=== PATIENT | female | born 1940 | race Caucasian/White ===

== ENCOUNTER 2019-01-04 23:18 | Observation (INO) | payer MEDICARE, BC ==
[2019-01-04] MEDS ORDERED: Pantoprazole IV* 40 MG IV ONE (23:45)
[2019-01-04] MEDS ORDERED: NS 0.9% 1000 ML** 1,000 ML IV ONE (23:45)
[2019-01-04] MEDS ORDERED: Ondansetron INJ* 2 MG/ML VIAL IV ONE (23:46)
--- NOTE | 2019-01-04 23:58 | ED ---
GI/ HPI - HPI Summary HPI Summary: This is a 78 year old female with a history of two Floridalma-Choudhary tears presenting with vomiting. The vomiting began several hours ago, with approximately 7 episodes of vomiting, that became dark, appearing like coffee- grounds. She also endorses abdominal pain in the epigastric area, that radiates up towards the sternum. She also complains of slight burning in the upper esophagus. She denies any headache, chest pain, SOB. She is not taking blood thinners. She has not been able to keep fluids or solids down. - History of Current Complaint Chief Complaint: EDNauseaVomitDiarrh Time Seen by Provider: 01/04/19 23:42 Stated Complaint: VOMITING BLOOD PER PT Pain Intensity: 5 - Allergy/Home Medications Allergies/Adverse Reactions: Allergies Allergy/AdvReac Type Severity Reaction Status Date / Time No Known Allergies Allergy Verified 01/04/19 23:25 Home Medications: Home Medications Lisinopril 2.5 MG- 2.5 mg PO DAILY 01/04/19 [History Confirmed 01/05/19] Metformin HCl 500 mg PO BID 01/04/19 [History Confirmed 01/05/19] Lantus Solostar 5x3 ML PENS 20 units SUBCUT BEDTIME 01/05/19 [History Confirmed 01/05/19] Lipitor 20 MG* 20 mg PO DAILY 01/05/19 [History Confirmed 01/05/19] Ranitidine HCl 300 mg PO DAILY 01/05/19 [History Confirmed 01/05/19] PMH/Surg Hx/FS Hx/Imm Hx Endocrine/Hematology History: Reports: Hx Diabetes Denies: Hx Anticoagulant Therapy Cardiovascular History: Denies: Hx Hypertension Infectious Disease History: No Infectious Disease History: Denies: Traveled Outside the [place] in Last 30 Days - Family History Known Family History: Positive: Non-Contributory - Social History Alcohol Use: None Substance Use Type: Reports: None Smoking Status (MU): Never Smoked Tobacco Review of Systems Negative: Fever Negative: Chest Pain Negative: Shortness Of Breath Positive: Abdominal Pain, Vomiting, Nausea All Other Systems Reviewed And Are Negative: Yes Physical Exam Triage Information Reviewed: Yes Vital Signs On Initial Exam: Initial Vitals Temp Pulse Resp BP Pulse Ox 97.9 F 92 16 160/87 98 01/04/19 23:20 01/04/19 23:20 01/04/19 23:20 01/04/19 23:20 01/04/19 23:20 Vital Signs Reviewed: Yes Appearance: Positive: Well-Appearing Skin: Positive: Warm, Dry Head/Face: Positive: Normal Head/Face Inspection Eyes: Positive: Normal, Conjunctiva Clear ENT: Positive: Pharynx normal Respiratory/Lung Sounds: Positive: Clear to Auscultation, Breath Sounds Present Cardiovascular: Positive: Normal, RRR Abdomen Description: Positive: Soft, Other: - tenderness in epigastric region Bowel Sounds: Positive: Present Musculoskeletal: Positive: Normal Neurological: Positive: Normal Psychiatric: Positive: Normal Procedures - Sedation Patient Received Moderate/Deep Sedation with Procedure: No Diagnostics - Vital Signs Vital Signs Temp Pulse Resp BP Pulse Ox 01/04/19 23:20 97.9 F 92 16 160/87 98 - Laboratory Result Diagrams: 01/05/19 00:05 01/05/19 00:05 Lab Statement: Any lab studies that have been ordered have been reviewed, and results considered in the medical decision making process. Re-Evaluation - Re-Evaluation First Eval Re-Evaluation Time: 00:53 Change: Improved Comment: feeling better GIGU Course/Dx - Course Course Of Treatment: 78-year-old female presents with nausea and vomiting for the last couple hours. She states it started as normal and then became coffee- ground emesis. Has been vomiting 6-7 times an hour. Does have a history of Floridalma-Choudhary tears x2 about 21 years ago. No chest pain or shortness breath. Has epigastric pain. while in the ED had 4 episodes of coffee ground emesis in the ER. on exam tenderness epigastric. wbc normal. hemoglobin is 11.3 potassium normal. magnesium 1.4 so gave supplement. gave zofran and feeling better no repeat vomiting. vitals stable. discussed with dr card who will see patient later today. spoke with dr leon who agrees to admit. - Diagnoses Differential Diagnoses - Female: Gastritis, Gastroenteritis (Viral) Provider Diagnoses: Hematemesis Discharge ED - Sign-Out/Discharge Documenting (check all that apply): Patient Departure - Discharge Plan Condition: Stable Disposition: ADMITTED TO [facility] - Billing Disposition and Condition Condition: STABLE Disposition: Admitted to [facility] - Attestation Statements Provider Attestation: I was available for consultation for this patient. I did not evaluate the patient or participate in any medical decision making or disposition decisions unless I am specifically named in the chart as having consulted on the patient. If I have consulted on the patient, please see my own ED note on the patient encounter. Radha Pryor MD
[2019-01-05 00:14] LABS: ABS Basophils 0.1 10^3/ul (0-0.2); ABS Eosinophils 0.2 10^3/ul (0-0.6); ABS Lymphocytes 2.7 10^3/ul (1.0-4.8); ABS Monocytes 0.5 10^3/ul (0-0.8); Eosinophil % 2.5 %; Hematocrit 33 % (35-47); Hemoglobin 11.3 g/dL (12.0-16.0); Mean Corpuscular HGB Conc 34 g/dL (31-36); Mean Corpuscular Hemoglobin 28 pg (27-31); Mean Corpuscular Volume 84 fL (80-97); Mean Platelet Volume 9.4 fL (7.4-10.4); Nucleated Red Blood Cells % 0.1; Platelet Count 257 10^3/uL (150-450); Red Blood Count 3.97 10^6 /uL (3.70-4.87); Red Cell Distribution Width 14 % (10-15); White Blood Count 7.4 10^3/uL (3.5-10.8)
[2019-01-05 00:18] LABS: INR 1.02 (0.82-1.09)
[2019-01-05 00:33] LABS: Albumin/Globulin Ratio 1.5 (1-3); BUN/Creatinine Ratio 23.2 (8-20); C Reactive Protein 1.82 mg/L (<8.01); EGFR African American 44.7 (>60); Globulin 2.6 g/dL (2-4); Magnesium 1.4 mg/dL (1.9-2.7); Potassium 4.2 mmol/L (3.5-5.0); Total Bilirubin 0.6 mg/dL (0.2-1.0); Total Protein 6.6 g/dL (6.4-8.9)
[2019-01-05] MEDS ORDERED: NS 0.9% 1000 ML** 1,000 ML IV ONE (00:36)
[2019-01-05] MEDS ORDERED: Magnesium Sulfate 2 GM IV* 2 GM/50 ML BAG IVPB ONE (00:40)
[2019-01-05] MEDS ORDERED: Ondansetron INJ* 2 MG/ML VIAL IV PRN (04:11)
[2019-01-05] MEDS ORDERED: NS 0.9% 1000 ML** 1,000 ML IV SCH (04:15)
[2019-01-05 06:40] LABS: Magnesium 2.2 mg/dL (1.9-2.7)
[2019-01-05 07:03] LABS: Urine Appearance Clear; Urine Bilirubin Negative (Negative); Urine Blood Negative (Negative); Urine Color Straw; Urine Glucose Negative (Negative); Urine Ketones Negative (Negative); Urine Nitrite Negative (Negative); Urine Protein Negative (Negative); Urine Specific Gravity 1.009 (1.010-1.030); Urine Urobilinogen Negative (Negative)
[2019-01-05 07:09] LABS: Calcium 8.9 mg/dL (8.6-10.3); EGFR African American 49.2 (>60); EGFR Non-African American 40.7 (>60); Potassium 4.5 mmol/L (3.5-5.0)
[2019-01-05 07:11] LABS: ABS Basophils 0.1 10^3/ul (0-0.2); ABS Eosinophils 0.2 10^3/ul (0-0.6); ABS Monocytes 0.5 10^3/ul (0-0.8); ABS Neutrophils 3.1 10^3/ul (1.5-7.7); Eosinophil % 3.2 %; Hematocrit 30 % (35-47); Hemoglobin 10.3 g/dL (12.0-16.0); Lymphocyte % 43.5 %; Mean Corpuscular HGB Conc 34 g/dL (31-36); Mean Corpuscular Hemoglobin 29 pg (27-31); Mean Corpuscular Volume 85 fL (80-97); Mean Platelet Volume 9.4 fL (7.4-10.4); Platelet Count 223 10^3/uL (150-450); Red Blood Count 3.56 10^6 /uL (3.70-4.87); Red Cell Distribution Width 14 % (10-15)
--- NOTE | 2019-01-05 08:52 | HP ---
ADMISSION HISTORY AND PHYSICAL: DATE OF ADMISSION: 01/05/19 CHIEF COMPLAINT: Intractable nausea and vomiting with coffee-ground emesis. HISTORY OF PRESENT ILLNESS: This is a 78-year-old female with past medical history of diabetes type 2, on insulin; hyperlipidemia; depression, on some medications she cannot recall; gastroesophageal re flux disease; previous history of Floridalma-Choudhary tear 20 years ago, comes in with intractable vomiting . The patient is originally from [facility], came to visit her sister and upon arrival, she st arted having severe nausea and vomiting after she had some soup. No one else was sick at home. Naus ea and vomiting was accompanied by umbilical area abdominal discomfort. She states that specifically this was not a pain, but more of a discomfort from the vomiting and after about 5 episodes of vomitin g, her vomitus became very dark and black and coffee-ground looking and she remembered that similar t lucia happened 20 years ago when she had Floridalma-Choudhary tear, so decided to come to the ER for further evaluation. The patient otherwise offers no chest pain, no shortness of breath. No urinary burning s ensation or pain with urination. She did have black bowel movement 3 days ago, but she stated that s he has been traveling on the [employer] flight, has not eaten properly and has not really slept well, bu t does not feel any constipation. PAST MEDICAL HISTORY: As mentioned: 1. Diabetes, on insulin. She is on lisinopril, but this is for renal protective reason, but not a h igh blood pressure. 2. Hyperlipidemia. 3. Depression, on medication that she could not recall. 4. Gastroesophageal reflux disease. PAST SURGICAL HISTORY: She has had thyroid gland tumor resected, tubal ligation, total abdominal hys terectomy with bilateral salpingo-oophorectomy, gastroplasty in 1984 with significant weight loss, ch olecystectomy for some strawberry gallbladder, history of kidney stones. HOME MEDICATIONS: The patient is currently on: 1. Ranitidine 300 mg oral daily. 2. Lantus SoloSTAR subcutaneous 20 units at bedtime. 3. Metformin 500 mg p.o. b.i.d. 4. Lipitor 20 mg oral daily. 5. Lisinopril 2.5 mg oral daily. FAMILY HISTORY: Noncontributory at her age of 78. SOCIAL HISTORY: The patient denies any smoking, alcohol, or drug use. She lives with her an d kids in [facility]. She was originally from [place], came back to visit her sister. She is a full code and her is her healthcare proxy. REVIEW OF SYSTEMS: A 14-point review of systems did not reveal any new information other than what i s stated in the HPI. PHYSICAL EXAMINATION GENERAL: The patient is awake, alert and oriented x3, does not appear to be in any acute respiratory distress. VITAL SIGNS: In the ER, BP was noted to be 132/82, heart rate 92, respiration rate 16, saturating 97 % on room air, temperature is 97.9. HEAD AND NECK: Atraumatic, normocephalic. Bilateral pupils are reactive. Oral mucosa was moist. NECK: Supple. No jugular venous distention. LUNGS: Clear to auscultation bilaterally. No wheezing, rhonchi, or rales. HEART: S1, S2. Regular rate and rhythm. ABDOMEN: Soft, nontender, nondistended. Normoactive bowel sounds. EXTREMITIES: No cyanosis, clubbing, or edema. DIAGNOSTIC STUDIES/LABORATORY DATA: CBC was showing mild anemia with hemoglobin of 11.3, hematocrit of 33. Coagulation profile shows normal INR at 1.2. Comprehensive metabolic panel shows elevated BU N at 32, creatinine at 1.32. Random glucose was 104. Lactic acid normal. Magnesium minimally decre ased at 1.4. IMPRESSION: This is a 78-year-old female with history of Floridalma-Choudhary tear, who comes in with recur rent vomiting, was changed to coffee-ground emesis. Dr. Johnson was consulted by the ER physician layo murrieta recommended admission and monitoring for overnight. ASSESSMENT: 1. Vomiting with coffee-ground emesis, rule out any GI bleed. We will hydrate the patient. Keep th e patient on a clear liquid diet for possible endoscopy if required, then consult GI to evaluate the patient. We will repeat labs to check for stability of the hemoglobin. BUN and creatinine ratio gre ater than 20 does suggest possible upper GI bleed, although it could also be from just dehydration an d prerenal azotemia. 2. Elevated creatinine and BUN, probably prerenal azotemia versus GI bleed. Continue with rehydratio n. 3. History of diabetes. We will hold the hypoglycemic agents for now and check fingersticks with a. c. and h.s. on the clear liquid diet. Once okay by GI, we can consider advancing diet and restarting her home medication. 4. History of gastroesophageal reflux disease. We will switch ranitidine to Protonix. 5. History of dyslipidemia. We will hold Lipitor for now. 6. DVT prophylaxis with sequential compression device. 7. Code status: Full code. [id number]/[facility] #: [id number]
[2019-01-05] MEDS ORDERED: Pantoprazole IV* 40 MG IV SCH (09:00)
[2019-01-05 13:22] LABS: Hematocrit 30 % (35-47); Hemoglobin 10.2 g/dL (12.0-16.0)
[2019-01-05 15:50] VITALS: BP 140/42
--- NOTE | 2019-01-06 01:09 | DS ---
DISCHARGE SUMMARY: DATE OF ADMISSION: 01/05/19 DATE OF DISCHARGE: 01/05/19 PRIMARY CARE PROVIDER: Unknown at this time. MY ATTENDING WHILE IN THE HOSPITAL: Dr. Maria Landrum.* (DICTATED BY LORI LEONARD) PRIMARY DISCHARGE DIAGNOSES: 1. Vomiting, unknown cause. 2. Hematemesis, likely Floridalma-Choudhary tear. SECONDARY DISCHARGE DIAGNOSES: 1. Diabetes mellitus type 2. 2. Hyperlipidemia. 3. Depression. 4. Gastroesophageal reflux disease history. 5. Gastroplasty. STUDIES DONE WHILE IN THE HOSPITAL: None. MEDICATIONS AT DISCHARGE: 1. Lisinopril 2.5 mg p.o. daily. 2. Metformin 500 mg p.o. b.i.d. 3. Lipitor 20 mg p.o. daily. 4. Lantus 20 units subcutaneous at bedtime. 5. Omeprazole 20 mg p.o. b.i.d. 6. Zofran 4 mg p.o. q.6 hours as needed. New medications at discharge: 1. Omeprazole. 2. Zofran. Medications discontinued at discharge: Ranitidine 300 mg p.o. daily. HOSPITAL COURSE: This is a brief summary of the patient's presentation. For more details, please see the history and physical from Dr. Neftaly Schultz on . In brief, the patient is a 78-year-old female with past medical history significant for the above, who presented to the emergency department with intractable vomiting approximately five episodes, which ended with very dark and coffee-grounds material. The patient has had two different times in her life, where she has had episodes of intractable vomiting, which she believes are related to food not going directly into her stomach related to her history of gastric bypass. She had two episodes of Floridalma-Choudhary tears 20 years ago in relation to this and then approximately 4 years ago, she had several episodes of vomiting and had 4 endoscopies in the course of 3 months, none of which had any significant findings that she knows of. The patient in the emergency department was given one dose of Zofran and one dose of pantoprazole and her nausea and vomiting resolved almost immediately. The patient felt persistently better throughout the day. The patient had a slight decrease in her hemoglobin. Her baseline hemoglobin is unknown, but on admission was 11.3 and decreased after fluids were given and then remained stable. The patient has chronic anemia, it is unknown what degree as she receives IV iron therapy. The patient denies any fever or chills. The patient's symptoms came on after eating a cup of soup. She does not believe this is related and believes that her nausea was actually just due to stress related to her red eye flight that she was on from [facility] and this case was discussed with Dr. Marlen Chin of Gastroenterology, who states that she does not believe that the patient does require to have an EGD at this time. The patient was amenable to this and felt ready for a diet and discharge to home if this was tolerated well. The patient was able to eat approximately half of her dinner. The patient had no abdominal pain or nausea associated with this. The patient has no chest pain, shortness of breath, fevers or chills. The patient was stable and amenable for discharge on 01/05/19 for followup outpatient with her primary care provider and her vault attendant with whom she is familiar in [facility]. DISCHARGE PLAN BY PROBLEM: 1. Intractable nausea and vomiting, Floridalma-Choudhary tear. The patient has had several episodes throughout her life with nausea and vomiting associated with several endoscopies that have shown no abnormalities. It is unknown to the patient if she has ever had manometry testing or other more advanced testings for esophageal dysmotility or other conditions related to her history of gastric bypass, possibly causing these episodes. The patient likely had a Flordialma-Choudhary tear as her hemoglobin only decreased with fluids and then remained stable. The patient is currently asymptomatic. The patient was placed on b.i.d. omeprazole per the recommendation of Dr. Chin. The patient will be in [place] until 01/10/19 and then will go home and follow up with her primary care provider and her outpatient vault attendant for consideration of repeat endoscopy and other additional testings. There is a possibility that the patient's symptoms are related to toxin-mediated food poisoning from her soup; however, this is less likely given the duration and onset. The patient should return to the hospital for intractable vomiting, blood in her vomit, passing out or other alarming symptoms. 2. Anemia. The patient's anemia is stable at this time. The patient is asymptomatic. The patient received IV iron infusions as an outpatient. The patient is to follow up with her primary care provider, head chopper, whomever organized her IV iron for repeat hemoglobin and hematocrit and this should be treated appropriately for this. 3. Hyperlipidemia. Continue the patient's statin. 4. Diabetes mellitus. Continue the patient's metformin and lisinopril for renal protection. 5. Disposition: Home. 6. Condition: Stable. TIME SPENT: Approximately 60 minutes was spent on the discharge of this patient , 40 of which was spent [id number] with the patient obtaining history and physical and discussing treatment plan. LORI LEONARD [id number]/[facility] #: [id number] CLARIT[place]
== END 2019-01-05 17:42 | disposition home or self-care (01) ==
LOC: ED 23:18 → SSU 01-05 04:11
PROVIDERS: ADMIT Internal Medicine; ATTEND Internal Medicine
DX: K92.0 Hematemesis (principal); E11.9 Type 2 diabetes mellitus without complications; Z79.4 Long term (current) use of insulin; R10.9 Unspecified abdominal pain; E78.5 Hyperlipidemia, unspecified; F32.9 Major depressive disorder, single episode, unspecified; K21.9 Gastro-esophageal reflux disease without esophagitis; Z79.899 Other long term (current) drug therapy
CPT/HCPCS: 36415; 80048; 80053; 81003; 83605; 83690; 83735; 85014; 85018; 85025; 85610; 86140; 86850; 86900; 86901; 96365; 96375; 99284; G0378; J2405; J3475